=== PATIENT | male | born 1950 | race Caucasian/White ===

== ENCOUNTER 2023-05-25 10:12 | Emergency (ER) | payer OTHER, SELFPAY ==
[2023-05-25 10:24] VITALS: BP 123/73; PULSE 104; RESP 15; TEMP 36.3; O2SAT 97; BMI 22.3
[2023-05-25] MEDS: SODIUM CHLORIDE 0.9% 1,000 ML 1000 ML IV (11:00)
[2023-05-25] MEDS: ONDANSETRON 4 MG/2 ML INJ IV (11:00)
[2023-05-25 11:10] LABS: Add Manual Diff / Slide Review NO; Basophils Absolute Auto 0 /uL (0-100); Basophils Percent Auto 0.3 % (0-2); Eosinophils Absolute Auto 0 /uL (0-450); Eosinophils Percent Auto 0.2 % (2-4); Hemoglobin 14.5 g/dL (13.5-17.5); Lymphocytes Absolute Auto 5700 /uL (1100-4500); Mean Corpuscular HGB Conc 34.5 % (30-36); Mean Corpuscular Hemoglobin 31.6 PG (26-34); Mean Corpuscular Volume 91.4 fL (80-100); Monocytes Absolute Auto 800 /uL (0-900); Monocytes Percent Auto 7.2 % (3-14); Neutrophils Absolute Auto 4400 /uL (1500-7000); Neutrophils Percent Auto 40.3 % (50-75); Platelet Count 532 X10^3/uL (150-400); Red Blood Cell Count 4.59 X10^6/uL (4.5-5.9); Red Cell Distribution Width 16.5 % (11.6-14.8); White Blood Cell Count 10.9 X10^3/uL (4.5-11.0)
[2023-05-25 11:35] LABS: Alanine Aminotransferase 29 IU/L (<50); Albumin 3.9 g/dL (3.5-5.0); Albumin Globulin Ratio 1.3 (1.0-2.8); Alkaline Phosphatase 83 U/L (38-126); Aspartate Aminotransferase 95 IU/L (17-59); BUN Creatinine Ratio 22.3 (6-22); Bilirubin Total 1.3 mg/dL (0.2-1.3); Blood Urea Nitrogen 23 mg/dL (9-20); Calcium 8.6 mg/dL (8.4-10.2); Carbon Dioxide 25 mmol/L (22-32); Chloride 98 mmol/L (98-107); Estimated Glomerular Filt Rate > 60 mL/min (>60); Globulin 2.9 g/dL (1.7-4.1); Glucose 104 mg/dL (80-110); HEMOLYSIS 17 (0-50); Lipase 129 U/L (23-300); Potassium 4.2 mmol/L (3.4-5.1); Sodium 131 mmol/L (137-145); Total Protein 6.8 g/dL (6.3-8.2)
[2023-05-25 12:03] VITALS: BP 125/60; PULSE 90; RESP 16; TEMP 37.1; O2SAT 93
--- NOTE | 2023-05-25 12:04 | ED_ITS ---
HPI - Nausea/Vomiting/Diarrhea <WALESKA Phillips Last Filed: 05/25/23 12:13> General Chief complaint: Nausea/Vomiting/Diarrhea Stated complaint: Tested positive for covid 7 days ago Can't eat Time Seen by Provider: 05/25/23 11:56 Source: patient Mode of arrival: Ambulatory History of Present Illness HPI Narrative: This is a 72-year-old male presents to the emergency department due to continued nausea after being diagnosed for COVID 9 days ago. He states that he has been feeling too nauseous to E and states that he still has been eating some but has been able to taste it. Denies any chest pain, shortness of breath, abdominal pain, or any other concerning signs or s ymptoms. denies any vomiting Related Data Previous Rx's Medication Instructions Recorded ondansetron 4 mg oral soluble film 4 mg PO Q8H PRN nausea and 05/25/23 vomiting #30 ea Allergies Allergy/AdvReac Type Severity Reaction Status Date / Time No Known Drug Allergies Allergy Verified 05/25/23 10:24 Review of Systems <WALESKA Phillips Last Filed: 05/25/23 12:13> Review of Systems Narrative: GENERAL: Denies chills, fatigue, malaise, fever, sweats. HEENT: Denies sinus pain, ear pain, sore throat, difficulty swallowing, dizziness. RESPIRATORY: Denies dyspnea, cough, wheezing, hemoptysis, sputum. CARDIOVASCULAR: Denies chest pain, palpitations, orthopnea, edema, GASTROINTESTINAL: Reports nausea : Denies dysuria, frequency, incontinence, hematuria, urinary retention. MUSCULOSKELETAL: denies weakness, joint pain, or bony pain SKIN: Denies rash, skin lesions, or other NEUROLOGIC: Denies weakness, headache, numbness, change in speech, confusion, seizures, incoordination. PSYCHIATRIC: No concerning psychosocial issues. 12 point review of systems is negative except for those stated above Patient History <WALESKA Phillips Last Filed: 05/25/23 12:13> Social History Smoking Status: Current every day smoker Smoking Status: Current every day smoker alcohol intake frequency: holidays/special occasions only Substance Use Type: does not use Exam <WALESKA Phillips Last Filed: 05/25/23 12:13> Narrative Exam Narrative: GENERAL: Well-developed patient, in mild distress. HEAD: Atraumatic. Normocephalic. EYES: Pupils equal round and reactive. Extraocular motions intact. No scleral icterus. No injection or drainage. ENT: Nose without bleeding, purulent drainage. Throat without erythema, tonsillar hypertrophy or exudate. Airway patent. NECK: Trachea midline. Non tender CARDIOVASCULAR: Regular rate and rhythm without murmurs, gallops, or rubs. RESPIRATORY: Clear to auscultation. Breath sounds equal bilaterally. No wheezes, rales, or rhonchi. GASTROINTESTINAL: Abdomen soft, non-tender, nondistended. EXTREMITIES: No edema or joint tenderness. BACK: Nontender without deformity or crepitance. No flank tenderness. NEURO: AOx3. SKIN: No rash or erythema of visible areas Initial Vital Signs Initial Vital Signs: Vital Signs Temperature 97.4 F L 05/25/23 10:24 Pulse Rate 104 H 05/25/23 10:24 Respiratory Rate 15 05/25/23 10:24 Blood Pressure 123/73 05/25/23 10:24 Pulse Oximetry 97 05/25/23 10:24 Oxygen Delivery Method Room Air 05/25/23 10:24 <Kim Arce DO - Last Filed: 05/26/23 07:16> Initial Vital Signs Initial Vital Signs: Vital Signs Temperature 97.4 F L 05/25/23 10:24 Pulse Rate 104 H 05/25/23 10:24 Respiratory Rate 15 05/25/23 10:24 Blood Pressure 123/73 05/25/23 10:24 Pulse Oximetry 97 05/25/23 10:24 Oxygen Delivery Method Room Air 05/25/23 10:24 Course <Chris Kauffman PA-C - Last Filed: 05/25/23 12:13> Orders Ordered: Discontinued Medications Sodium Chloride (Normal Saline 0.9%) 1,000 mls @ 1,000 mls/hr IV BOLUS ONE Stop: 05/25/23 11:56 Last Infusion: 05/25/23 11:52 Dose: 0 mls/hr Documented By: Admin: 05/25/23 11:00 Dose: 1,000 mls/hr Documented By: QUINCY Ondansetron HCl (Ondansetron 4 Mg/2 Ml Inj) 4 mg IV NOW PRN PRN Reason: Nausea And Vomiting Last Admin: 05/25/23 11:00 Dose: 4 mg Documented By: AMV Vital Signs Vital signs: Vital Signs - 8 hr 05/25/23 10:24 05/25/23 12:03 Temperature 97.4 F L 98.7 F Pulse Rate 104 H 90 Respiratory Rate 15 16 Blood Pressure 123/73 125/60 Pulse Oximetry 97 93 Oxygen Delivery Method Room Air Room Air <Kim Arce DO - Last Filed: 05/26/23 07:16> Orders Ordered: Discontinued Medications Sodium Chloride (Normal Saline 0.9%) 1,000 mls @ 1,000 mls/hr IV BOLUS ONE Stop: 05/25/23 11:56 Last Infusion: 05/25/23 11:52 Dose: 0 mls/hr Documented By: Admin: 05/25/23 11:00 Dose: 1,000 mls/hr Documented By: AMV Ondansetron HCl (Ondansetron 4 Mg/2 Ml Inj) 4 mg IV NOW PRN PRN Reason: Nausea And Vomiting Last Admin: 05/25/23 11:00 Dose: 4 mg Documented By: AMV Vital Signs Vital signs: Vital Signs - 8 hr 05/25/23 10:24 05/25/23 12:03 Temperature 97.4 F L 98.7 F Pulse Rate 104 H 90 Respiratory Rate 15 16 Blood Pressure 123/73 125/60 Pulse Oximetry 97 93 Oxygen Delivery Method Room Air Room Air MDM - Nausea/Vomiting/Diarrhea <Chris Kauffman PA-C - Last Filed: 05/25/23 12:13> Lab Data 05/25/23 10:58 05/25/23 10:58 Labs: Lab Results 05/25/23 05/25/23 Range/Units 10:58 10:58 WBC 10.9 (4.5-11.0) X10^3/uL RBC 4.59 (4.5-5.9) X10^6/uL Hgb 14.5 (13.5-17.5) g/dL Hct 42.0 (41-53) % MCV 91.4 (80-100) fL MCH 31.6 (26-34) PG MCHC 34.5 (30-36) % RDW 16.5 H (11.6-14.8) % Plt Count 532 H (150-400) X10^3/uL Neut % (Auto) 40.3 L (50-75) % Lymph % (Auto) 52.0 H (25-40) % [place] % (Auto) 7.2 (3-14) % Eos % (Auto) 0.2 L (2-4) % Baso % (Auto) 0.3 (0-2) % Neut # (Auto) 4400 (2885-7131) /uL Lymph # (Auto) 5700 H (9814-9257) /uL [place] # (Auto) 800 (0-900) /uL Eos # (Auto) 0 (0-450) /uL Baso # (Auto) 0 (0-100) /uL Sodium 131 L (137-145) mmol/L Potassium 4.2 (3.4-5.1) mmol/L Chloride 98 (98-107) mmol/L Carbon Dioxide 25 (22-32) mmol/L BUN 23 H (9-20) mg/dL Creatinine 1.03 (0.66-1.25) mg/dL Estimated GFR > 60 (>60) mL/min BUN/Creatinine Ratio 22.3 H (6-22) Glucose 104 (80-110) mg/dL Calcium 8.6 (8.4-10.2) mg/dL Total Bilirubin 1.3 (0.2-1.3) mg/dL AST 95 H (17-59) IU/L ALT 29 (<50) IU/L Alkaline Phosphatase 83 (38-126) U/L Total Protein 6.8 (6.3-8.2) g/dL Albumin 3.9 (3.5-5.0) g/dL Globulin 2.9 (1.7-4.1) g/dL Albumin/Globulin Ratio 1.3 (1.0-2.8) Lipase 129 (23-300) U/L MDM Narrative Medical decision making narrative: MDM * differential diagnosis includes but not limited to gastroenteritis, viral i llness * Prior records reviewed: Patient has not been here for similar complaints in the past. * My lab interpretation: CBC unremarkable, CMP showed hyponatremia of 131 although the patient did not present with symptoms of acute hyponatremia. * My imgaing interpretation: None ordered * Clinical Decision Rules/Scores evaluated: None * Independent discussions with: None ED Course: This is a 72-year-old male presents to the emergency department due to continued nausea after being dose was diagnosed with COVID 9 days ago. Patient was given Zofran which significantly helps improve his nausea and he was able to eat very well. Lab work showed no remarkable abnormalities. Did show mild hyponatremia but no acute signs of hyponatremia. Patient will be discharged with a prescription for Zofran with recommendations to continue to stay hydrated. Shared Decision Making: Discussed plan with patient who is comfortable with the plan Social Considerations: None Disposition: Discharged to home <Kim Arce, - Last Filed: 05/26/23 07:16> Lab Data Labs: Lab Results 05/25/23 05/25/23 Range/Units 10:58 10:58 WBC 10.9 (4.5-11.0) X10^3/uL RBC 4.59 (4.5-5.9) X10^6/uL Hgb 14.5 (13.5-17.5) g/dL Hct 42.0 (41-53) % MCV 91.4 (80-100) fL MCH 31.6 (26-34) PG MCHC 34.5 (30-36) % RDW 16.5 H (11.6-14.8) % Plt Count 532 H (150-400) X10^3/uL Neut % (Auto) 40.3 L (50-75) % Lymph % (Auto) 52.0 H (25-40) % [place] % (Auto) 7.2 (3-14) % Eos % (Auto) 0.2 L (2-4) % Baso % (Auto) 0.3 (0-2) % Neut # (Auto) 4400 (2419-1273) /uL Lymph # (Auto) 5700 H (2447-6327) /uL [place] # (Auto) 800 (0-900) /uL Eos # (Auto) 0 (0-450) /uL Baso # (Auto) 0 (0-100) /uL Sodium 131 L (137-145) mmol/L Potassium 4.2 (3.4-5.1) mmol/L Chloride 98 (98-107) mmol/L Carbon Dioxide 25 (22-32) mmol/L BUN 23 H (9-20) mg/dL Creatinine 1.03 (0.66-1.25) mg/dL Estimated GFR > 60 (>60) mL/min BUN/Creatinine Ratio 22.3 H (6-22) Glucose 104 (80-110) mg/dL Calcium 8.6 (8.4-10.2) mg/dL Total Bilirubin 1.3 (0.2-1.3) mg/dL AST 95 H (17-59) IU/L ALT 29 (<50) IU/L Alkaline Phosphatase 83 (38-126) U/L Total Protein 6.8 (6.3-8.2) g/dL Albumin 3.9 (3.5-5.0) g/dL Globulin 2.9 (1.7-4.1) g/dL Albumin/Globulin Ratio 1.3 (1.0-2.8) Lipase 129 (23-300) U/L Discharge Plan Departure Patient Disposition: Home Clinical Impression: Nausea Instructions: DI for Nausea -- Adult Activity Restrictions/Additional Instructions: Thank you for coming to the [facility] Emergency Department today. I am glad you are feeling better after the medication we gave you. I will prescribe a prescription for this as well. Please continue to do your best to keep eating and staying hydrated. Your lab work today was unremarkable. I hope you feel better soon. Prescriptions: New ondansetron 4 mg film 4 mg PO Q8H PRN (Reason: nausea and vomiting) Qty: 30 0RF Referrals: Ally Jane MD [Primary Care Provider] - Stand Alone Forms: Patient Portal/API <Kim Arce DO - Last Filed: 05/26/23 07:16> Cosign ED Attending Glennature Attestation: I was immediately available in the department for consultation. Documentation has been reviewed.
== END 2023-05-25 12:33 | disposition home or self-care (01) ==
PROVIDERS: Emergency Medicine; Emergency Provider Physician Assistant Medical; PCP Internal Medicine
DX: R11.0 Nausea (principal); Z86.16 Personal history of COVID-19
CPT/HCPCS: 80053; 83690; 85025; 96361; 96374; 99283; 99284; J2405

== ENCOUNTER 2025-09-14 09:16 | Emergency (ER) | payer OTHER, SELFPAY ==
[2025-09-14 09:32] VITALS: BP 139/79; PULSE 87; RESP 16; TEMP 36.6; O2SAT 100; BMI 23.6
--- NOTE | 2025-09-14 10:48 | DI.US.S_ITS ---
PROCEDURE: US ARTERIAL DUPLEX LE LT INDICATIONS: Left great toe and 4th toe pain, purple discoloration TECHNIQUE: Color and pulse Doppler interrogation was performed of the left lower extremity arterial system, with image documentation. Forty-seven images COMPARISON: None. FINDINGS: Common femoral artery: 100 cm/sec, with multiphasic flow. Deep femoral artery: 60 cm/sec, with multiphasic flow. Proximal superficial femoral artery: 93 cm/sec, with multiphasic flow. Mid superficial femoral artery: 93 cm/sec, with multiphasic flow. Distal superficial femoral artery: 85 cm/sec, with multiphase flow. Popliteal artery: 66 cm/sec, with multiphasic flow. Posterior tibial artery: 75 cm/sec, with multiphasic flow. Anterior tibial artery/dorsalis pedis: 74 cm/sec, with multiphasic flow. Eason-scale imaging description: No ultrasound evidence of stenosis or significant calcifications IMPRESSION: No ultrasound evidence of stenosis. Dictated by: Vance Rondon M.D. on 09/14/2025 at 12:49 Approved by: Vance Rondon M.D. on 09/14/2025 at 12:53
--- NOTE | 2025-09-14 10:50 | ED.EXTPRO ---
HPI - Extremity Problem General Chief complaint: Extremity Problem,Nontraumatic Stated complaint: right big toe pain, discoloring 6 weeks Time Seen by Provider: 09/14/25 09:35 Source: patient and family Mode of arrival: Ambulatory History of Present Illness HPI Narrative: 75 years old male with active smoker came in today complaining of toe pain on the left foot for the last 6 week and in the last 2 weeks he has been purple discoloration on the left great toe and left 4th toe. He denied changes of his chronic numbness of peripheral neuropathy or weakness, injury. He otherwise denied any fever, right nose, sore throat, coughing, chest pain, shortness of breath, abdominal pain, nausea vomiting, diarrhea, constipation, urine problem. Related Data Previous Rx's ?Medication ?Instructions ?Recorded ondansetron 4 mg oral soluble film 4 mg PO Q8H PRN nausea and 05/25/23 vomiting #30 ea doxycycline hyclate 100 mg capsule 100 mg PO BID #20 caps 09/14/25 oxycodone-acetaminophen 5 mg-325 1 tab PO Q6H PRN pain #14 tabs 09/14/25 mg tablet Allergies Allergy/AdvReac Type Severity Reaction Status Date / Time No Known Drug Allergies Allergy Verified 05/25/23 10:24 Review of Systems Review of Systems Narrative: complaining of toe pain on the left foot for the last 6 week and in the last 2 weeks he has been purple discoloration on the left great toe and left 4th toe. He denied changes of his chronic numbness of peripheral neuropathy or weakness, injury. He otherwise denied any fever, right nose, sore throat, coughing, chest pain, shortness of breath, abdominal pain, nausea vomiting, diarrhea, constipation, urine problem. Patient History Social History Smoking Status: Current every day smoker Smoking Status: Current every day smoker tobacco type: cigarettes alcohol intake frequency: holidays/special occasions only Exam Narrative Exam Narrative: GENERAL: Alert awake without acute distress. HEAD: Atraumatic. Normocephalic. NECK: Trachea midline. Non tender CARDIOVASCULAR: Regular rate and rhythm without murmurs, gallops, or rubs. RESPIRATORY: Clear to auscultation. Breath sounds equal bilaterally. No wheezes, rales, or rhonchi. GASTROINTESTINAL: Abdomen soft, non-tender, nondistended. EXTREMITIES: No edema or joint tenderness. 2+ left DP pulse. Could not feel the DP pulse on the right foot. Purple discoloration of the left great toe and left toe with tenderness on palpation without discharge or swelling. NEURO: AOx3. Initial Vital Signs Initial Vital Signs: Vital Signs Temperature 97.9 F 09/14/25 09:32 Pulse Rate 87 09/14/25 09:32 Respiratory Rate 16 09/14/25 09:32 Blood Pressure 139/79 09/14/25 09:32 Pulse Oximetry 100 09/14/25 09:32 Oxygen Delivery Method Room Air 09/14/25 09:32 Course Orders Ordered: Discontinued Medications Doxycycline Hyclate (Doxycycline Hyclate 100 Mg Tablet) 100 mg PO NOW ONE Stop: 09/14/25 19:21 Last Admin: 09/14/25 19:38 Dose: 100 mg Documented By: CAROLIN Oxycodone/Acetaminophen (Oxycodone/Acetaminophen 5/325 Tablet) 1 tab PO NOW ONE Stop: 09/14/25 19:21 Last Admin: 09/14/25 19:38 Dose: 1 tab Documented By: CAROLIN Vital Signs Vital signs: Vital Signs - 8 hr 09/14/25 09:32 Temperature 97.9 F Pulse Rate 87 Respiratory Rate 16 Blood Pressure 139/79 Pulse Oximetry 100 Oxygen Delivery Method Room Air MDM - Extremity (Nontraumatic) Imaging Data Arterial duplex ultrasound left leg: Radiologist's Impression: PROCEDURE: US ARTERIAL DUPLEX LE LT INDICATIONS: Left great toe and 4th toe pain, purple discoloration TECHNIQUE: Color and pulse Doppler interrogation was performed of the left lower extremity arterial system, with image documentation. Forty-seven images COMPARISON: None. FINDINGS: Common femoral artery: 100 cm/sec, with multiphasic flow. Deep femoral artery: 60 cm/sec, with multiphasic flow. Proximal superficial femoral artery: 93 cm/sec, with multiphasic flow. Mid superficial femoral artery: 93 cm/sec, with multiphasic flow. Distal superficial femoral artery: 85 cm/sec, with multiphase flow. Popliteal artery: 66 cm/sec, with multiphasic flow. Posterior tibial artery: 75 cm/sec, with multiphasic flow. Anterior tibial artery/dorsalis pedis: 74 cm/sec, with multiphasic flow. Eason-scale imaging description: No ultrasound evidence of stenosis or significant calcifications IMPRESSION: No ultrasound evidence of stenosis. Dictated by: Vance Rondon M.D. on 09/14/2025 at 12:49 Approved by: Vance Rondon M.D. on 09/14/2025 at 12:53 [facility] Narrative Medical decision making narrative: 75 years old male with active smoker came in today complaining of toe pain on the left foot for the last 6 week and in the last 2 weeks he has been purple discoloration on the left great toe and left 4th toe. He denied changes of his chronic numbness of peripheral neuropathy or weakness, injury. He otherwise denied any fever, right nose, sore throat, coughing, chest pain, shortness of breath, abdominal pain, nausea vomiting, diarrhea, constipation, urine problem. On exam showed 2+ left DP pulse. Purple discoloration of the left 1st toe and left 4th toe with tenderness on palpation without deformity, swelling. Normal sensation on both feet. His CV exam, lung exam, abdominal exam were normal. He is alert and oriented x4 without acute distress. His CBC was normal. His CMP showed sodium 131, AST 95 otherwise normal CMP. Duplex arterial ultrasound of left leg showed no obstruction. The DVT ultrasound of the left leg was pending. I signed out to my colleague during the shift change. Discharge Plan Departure Patient Disposition: Home Clinical Impression: Infected blister of great toe of left foot Qualifiers: Encounter type: initial encounter Qualified Code(s): S90.422A - Blister (nonthermal), left great toe, initial encounter Instructions: DI for Cellulitis -- Adult Activity Restrictions/Additional Instructions: Thank you for coming in today So I suspect when your toe started hurting more on Sunday, that was the beginning of the infection. There is area of irritation between your toes and a small blister in the web between your toes. I have given you a prescription for doxycycline, this is an antibiotic to be taken twice a day for 10 days. The 1st dose was given in the emergency department and the prescription was electronically transmitted [facility] in [place] For pain control I have given you Percocet. This is Tylenol plus oxycodone, it is a narcotic and we will cause constipation. You can use 1 every 6 hours as needed for pain. 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 Keeping your leg elevated will help with overall blood flow and healing as well as pain You did have ultrasounds done today that showed you do not have a venous blood clot and the arterial flow to your foot including your toes is actually quite good. This is not severe peripheral vascular disease, an arterial occlusion nor need for surgery. The fact that you have had this concern for at least 6 weeks and it is not improving is why would like you to be seen by our wound care clinic. I have sent a referral that will include my note and reasons for referral. Their phone number is [phone]. With the DC I know that there are additional hoops through which 2 jump. Calling the DC tomorrow letting them know that you have a toe infection in the emergency room has referred you to [facility] for follow up and evaluation will likely be helpful The potential for this getting worse is very real. If you are having increasing redness, streaks going up your leg, redness over the top of your foot, increasing pain or fevers or chills you do need to return to the ER Prescriptions: New oxycodone-acetaminophen 5-325 mg tablet 1 tab PO Q6H PRN (Reason: pain) Qty: 14 0RF doxycycline hyclate 100 mg capsule 100 mg PO BID Qty: 20 0RF No Action ondansetron 4 mg film 4 mg PO Q8H PRN (Reason: nausea and vomiting) Qty: 30 0RF Referrals: Jason Crespo MD [Primary Care Provider, Family Practice] Stand Alone Forms: Patient Portal/API
--- NOTE | 2025-09-14 15:03 | DI.US.S_ITS ---
PROCEDURE: US PERIPH VENOUS LOW EXTREM LT INDICATIONS: Left leg pain TECHNIQUE: Real-time imaging, as well as color and pulse Doppler interrogation, were performed of the lower extremity deep veins from the inguinal ligament to the popliteal fossa, with documentation of the visualized calf veins. COMPARISON: None. FINDINGS: The common femoral, femoral, popliteal, and the visualized calf veins are normally compressible, and free of intraluminal thrombus. Color and pulse Doppler demonstrate normal phasic intraluminal flow. There is normal augmentation response to distal compression maneuver. There is a oval lesion present in the anterior medial distal thigh measuring 2.9 x 1.1 x 1.8 cm IMPRESSION: 1. No findings of lower extremity deep venous thrombosis. 2. There is a lesion in the thigh which most likely represents an organizing intramuscular hematoma measuring 2.9 x 1.1 x 1.8 cm. Recommend clinical and potentially ultrasound follow-up to ensure that a growing lesion is not present. Dictated by: Washington Angel M.D. on 09/15/2025 at 8:54 Approved by: Washington Angel M.D. on 09/15/2025 at 9:30
[2025-09-14 16:54] VITALS: BP 140/75; PULSE 85; RESP 16; O2SAT 96
[2025-09-14 17:58] VITALS: BP 150/78; PULSE 77; RESP 16; O2SAT 95
--- NOTE | 2025-09-14 19:21 | ED_ITS ---
HPI - General Adult General Chief complaint: Extremity Problem,Nontraumatic Stated complaint: right big toe pain, discoloring 6 weeks Time Seen by Provider: 09/14/25 09:35 Source: patient and family Mode of arrival: Ambulatory History of Present Illness HPI narrative: 75-year-old gentleman with a history of peripheral neuropathy for which he takes gabapentin no known peripheral vascular disease nor diabetes has had a small wound on his left great toe for about 6 weeks that has not been healing. He saw a physician mid August who said that it was definitely not infected. 3 days ago while playing golf he noted that it was hurting significantly which was new and today he has had a bit more swelling. He comes in with further concerns he has not been having any fevers. Related Data Previous Rx's ?Medication ?Instructions ?Recorded ondansetron 4 mg oral soluble film 4 mg PO Q8H PRN latoya sea and 05/25/23 vomiting #30 ea doxycycline hyclate 100 mg capsule 100 mg PO BID #20 c aps 09/14/25 oxycodone-acetaminophen 5 mg-325 1 tab PO Q6H PRN pain #14 tabs 09/14/25 mg tablet Allergies Allergy/AdvReac Type Severity Reaction Status Date / Time No Known Drug Allergies Allergy Verified 05/25/23 10:24 Review of Systems Review of Systems Narrative: Pertinent positive and negative findings as per HPI Patient History Social History Smoking Status: Current every day smoker Smoking Status: Current every day smoker tobacco type: cigarettes alcohol intake frequency: holidays/special occasions only Exam Initial Vital Signs Initial Vital Signs: Vital Signs Temperature 97.9 F 09/14/25 09:32 Pulse Rate 87 09/14/25 09:32 Respiratory Rate 16 09/14/25 09:32 Blood Pressure 139/79 09/14/25 09:32 Pulse Oximetry 100 09/14/25 09:32 Oxygen Delivery Method Room Air 09/14/25 09:32 General: Alert appropriate in no acute distress Respiratory: Able to speak in full sentences, no obvious respiratory distress Skin: No obvious rashes, warm and dry Neurologic: Grossly intact no obvious asymmetries or abnormalities Psych: appropriate insight and affect, cooperative Extremity: There is an abrasion and shallow ulcer between the 1st and the 2nd toe and a small blister in the webspace between the 1st and the 2nd toe. Slight swelling, no significant lymphangitis or lymphangitic streaking. The toe itself is quite tender Course Orders Ordered: Discontinued Medications Doxycycline Hyclate (Doxycycline Hyclate 100 Mg Tablet) 100 mg PO NOW ONE Stop: 09/14/25 19:21 Last Admin: 09/14/25 19:38 Dose: 100 mg Documented By: CAROLIN Oxycodone/Acetaminophen (Oxycodone/Acetaminophen 5/325 Tablet) 1 tab PO NOW ONE Stop: 09/14/25 19:21 Last Admin: 09/14/25 19:38 Dose: 1 tab Documented By: CAROLIN Vital Signs Vital signs: Vital Signs - 8 hr 09/14/25 16:54 09/14/25 17:58 09/14/25 19:44 Temperature 97.9 F Pulse Rate 85 77 83 Respiratory Rate 16 16 18 Blood Pressure 140/75 150/78 H 135/75 Pulse Oximetry 96 95 100 Oxygen Delivery Method Room Air Room Air Room Air Medical Decision Making [facility] Narrative Medical decision making narrative: 75-year-old gentleman with a history of peripheral neuropathy on gabapentin but no diabetes or peripheral arterial disease presents with increasing pain and discoloration in his left great toe. He underwent both arterial and venous ultrasound which revealed no DVT, patent arteries and blood flow documented into the toe itself There is increasing discoloration to the great toe with a small ulceration in the medial aspect what appears to be a deeper blister in the toe wedding. It appears that the ulceration is getting infected. There was no significant drainage, no foul smell, do not suspect osteo myelitis. He is treated with doxycycline and Percocet for pain control. First doses given in the emergency department. Referral to wound care to make sure that this superficial ulceration on the great toe that has been there for 6 weeks now seemingly infe cted does continue to clearly improve. There was no evidence of significant underlying vascular disease or arterial occlusion. Findings reviewed with him questions are answered and he is safe for discharge Discharge Plan Departure Patient Disposition: Home Clinical Impression: Infected blister of great toe of left foot Qualifiers: Encounter type: initial encounter Qualified Code(s): S90.422A - Blister (nonthermal), left great toe, initial encounter Instructions: DI for Cellulitis -- Adult Activity Restrictions/Additional Instructions: Thank you for coming in today So I suspect when your toe started hurting more on Sunday, that was the beginning of the infection. There is area of irritation between your toes and a small blister in the web between your toes. I have given you a prescription for doxycycline, this is an antibiotic to be taken twice a day for 10 days. The 1st dose was given in the emergency department and the prescription was electronically transmitted to [facility] in [place] For pain control I have given you Percocet. This is Tylenol plus oxycodone, it is a narcotic and we will cause constipation. You can use 1 every 6 hours as needed for pain. Please make sure you shredder picker a stool softener when you shredder picker this pain pill prescription. Keeping your leg elevated will help with overall blood flow and healing as well as pain You did have ultrasounds done today that showed you do not have a venous blood clot and the arterial flow to your foot including your toes is actually quite good. This is not severe peripheral vascular disease, an arterial occlusion nor need for surgery. The fact that you have had this concern for at least 6 weeks and it is not improving is why would like you to be seen by our wound care clinic. I have sent a referral that will include my note and reasons for referral. Their phone number is [phone]. [facility] I know that there are additional hoops through which [address] jump[address] tomorrow letting them know that you have a toe infection in the emergency room has referred you to [facility] for follow up and evaluation will likely be helpful The potential for this getting worse is very real. If you are having increasing redness, streaks going up your leg, redness over the top of your foot, increasing pain or fevers or chills you do need to return to the ER Prescriptions: New oxycodone-acetaminophen 5-325 mg tablet 1 tab PO Q6H PRN (Reason: pain) Qty: 14 0RF doxycycline hyclate 100 mg capsule 100 mg PO BID Qty: 20 0RF No Action ondansetron 4 mg film 4 mg PO Q8H PRN (Reason: nausea and vomiting) Qty: 30 0RF Referrals: Jason Crespo MD [Primary Care Provider, Family Practice] Stand Alone Forms: Patient Portal/API
[2025-09-14] MEDS: DOXYCYCLINE HYCLATE 100 MG TABLET PO (19:38)
[2025-09-14 19:44] VITALS: BP 135/75; PULSE 83; RESP 18; TEMP 36.6; O2SAT 100
== END 2025-09-14 19:47 | disposition home or self-care (01) ==
PROVIDERS: Emergency Provider Emergency Medicine; PCP Family Medicine
DX: S90.422A Blister (nonthermal), left great toe, initial encounter (principal); F17.210 Nicotine dependence, cigarettes, uncomplicated
CPT/HCPCS: 93926; 93971; 99283